=== PATIENT | female | born 1960 | race Caucasian/White ===

== ENCOUNTER 2016-12-05 14:57 | Outpatient (CLI) | payer OTHER ==
--- NOTE | 2016-12-05 15:46 | DIAGNOSTIC IMAGING REPORT ---
PROCEDURE: US COMPLETE PELVIC W/TRANSVAG INDICATION: DYSFUNCTIONAL URINE BLEEDING TECHNIQUE: Transabdominal and endovaginal han scale and color Doppler sonographic images of the female pelvis were obtained. COMPARISON: None. FINDINGS: TRANSABDOMINAL SCANS: Normal kidneys. TRANSVAGINAL SCANS: Retroverted uterus measures 8.6 x 3.5 x 5.5 cm. Myometrium is unremarkable. Endometrium is normal, 4.5 mm. Right ovary measures 2.3 x 1.6 x 2.5 cm. Left ovary measures 3.2 x 1.7 x 2.6 cm with several follicles, largest of 1.8 cm. There is no free fluid in the cul-de-sac. IMPRESSION: 1. Retroverted uterus, normal very 2. Otherwise negative pelvic ultrasound
== END 2016-12-05 23:00 ==
LOC: US SRH 14:57
DX: N93.8 Other specified abnormal uterine and vaginal bleeding (principal); N85.4 Malposition of uterus